=== PATIENT | male | born 1995 | race Caucasian/White ===

== ENCOUNTER 2016-04-04 21:46 | Emergency (ER) | payer BC ==
[2016-04-04 21:58] VITALS: BMI 19.0
[2016-04-04] MEDS ORDERED: ONDANSETRON HCL 4 MG/2 ML VIAL IV ONE (22:19)
[2016-04-04] MEDS ORDERED: NS 1,000 ML IV ONE ×2 (22:19→23:41)
[2016-04-04] MEDS ORDERED: HYDROmorphone 1 MG INJECTION IV ONE (22:19)
--- NOTE | 2016-04-04 22:21 | EDPRACDOC ---
- General Information Chief Complaint: Abdominal Pain Stated Complaint: COUGHING UP BLOOD PALE SHAKING Time Seen by Provider: 04/04/16 22:16 Mode Of Arrival: Car Home Medications: Home Medications Cyclobenzaprine HCl [Flexeril] 10 mg PO TID #20 tablet 11/14/12 Hydrocodone Bit/Acetaminophen [Hydrocodon-Acetaminophen 5-325] 1 tab PO Q4-6H PRN #14 tab 11/14/12 Methylphenidate HCl [Concerta] 18 mg PO DAILY 11/14/12 Ciprofloxacin HCl [Cipro] 500 mg PO BID #20 tab 04/05/16 Ondansetron HCl [Zofran] 4 mg PO TID #30 tablet 04/05/16 Oxycodone HCl/Acetaminophen [Percocet 5-325 mg Tablet] 1 each PO Q4 #20 tablet 04/05/16 Promethazine [Phenergan] 25 mg PO Q8H PRN #30 tab 04/05/16 Allergies/Adverse Reactions: Allergies Allergy/AdvReac Type Severity Reaction Status Date / Time No Known Allergies Allergy Verified 04/04/16 21:58 - History of Present Illness Onset: [employer] HPI: PATIENT STATES HE HAS MAIN MIDABDOMEN SUDDENLY TONIGHT WITH NAUSEA AND VOMITING. "FEELS LIKE GUTS ARE TWISTED UP". NO DIARRHEA. NO HX OF PRIOR EVENT. NO SURGERY. Pain Location: Reports: Periumbilical Pain Context: Reports: Spontaneous Pain Severity: Moderate Pain Quality: Reports: Cramping, Sharp, Stabbing Pain Radiation: Reports: No Radiation Adult Abdominal History: Denies: Abdominal Surgery Modifying Factors: improves with: Nothing Associated Signs & Symptoms: Reports: Nausea, Vomiting Oral Intake: Normal Urinary Output: Normal ED Past Medical History - History Reviewed Yes Nurses notes reviewed and agree except as marked Travel Outside of [place] in the Last 3 Months?: No - Patient Medical History Surgical History: Reports: No Significant History - Social Medical History ETOH: None Substance Abuse: None Lives With: Family Lives In: Home EDM Review of Systems - Review of Systems ROS Negative Except as Marked: Yes All systems reviewed and were negative except as marked Constitutional: No Symptoms Reported. negative: Fever, Chills, Weakness, Fatigue, Loss of Appetite Eyes: No Symptoms Reported. negative: Redness, Blurred Vision, Double Vision, Discharge, Pain, Light Sensitive, Photophobia Ears: No Symptoms Reported. negative: Pain, Hearing Loss, Drainage, Ear Pulling Throat: No Symptoms Reported. negative: Pain, Swelling Nose: No Symptoms Reported. negative: Congestion, Bleeding, Discharge, Injection, Swelling, Deformity, Ecchymosis, Tender, Abrasion, Laceration Mouth: No Symptoms Reported. negative: Pain, Drooling Respiratory: No Symptoms Reported. negative: Cough, Brassy Cough, Barky Cough, Shortness of Breath, Wheezing, Hemoptysis Cardiovascular: No Symptoms Reported. negative: Chest Pain, Palpitations, Syncope, Edema, Orthopnea, PND, Skin Mottling, Cyanosis Gastrointestinal: Nausea, Pain, Vomiting. negative: Constipation, Diarrhea, Formula Intolerance, Melena Genitourinary: No Symptoms Reported. negative: Dysuria, Hematuria, Frequency, Discharge, Bleeding, Testicular Pain, Neurological: No Symptoms Reported. negative: Headache, Dizziness, Seizure, Numbness, Weakness, Speech Difficulty, Gait Difficulty Musculoskeletal: No Symptoms Reported. negative: Neck, Chestwall, Ribs, Back, Shoulder, Arm, Elbow, Forearm, Wrist, Hand, Pelvis, Hip, Femur, Knee, Leg, Ankle , Foot Integumentary: No Symptoms Reported. negative: Itching, Rash, Bruising, Wound Allergic/Immunologic: No Symptoms Reported. negative: Hives, Itching Hematologic: No Symptoms Reported. negative: Lymphadenopathy, Easy Bruising, Easy Bleeding Endocrine: No Symptoms Reported. negative: Weight Gain, Weight Loss Psychiatric: No Symptoms Reported. negative: Anxiety, Depression, Hallucinations, Insomnia, Suicidal - Physical Exam Constitutional: Alert (Awake), Distress (MODERATE) Oriented to: Time, Person, Place Last recorded Vital Signs: Last Vital Signs Temp 97.2 F L 04/04/16 21:54 Pulse 90 04/04/16 23:52 Resp 20 04/04/16 23:52 BP 111/67 04/04/16 23:52 Pulse Ox 96 04/04/16 23:52 Oxygen Pulse Oxygen Saturation 96 O2 Device Room Air Oxygen Flow Rate Fraction of Inspired Oxygen ( FIO2) - HEENT Head: Normal ( normocephalic) Eye Exam: Normal (PERRL, EOMI, Sclera white) Oropharynx: Normal (Pharynx:Moist without exudate,Gums-no swelling) Tympanic Membrane: Normal ENT EAC: Normal TMJ: Normal Nose: No Symptoms Reported (septum midline) Neck: Normal (FROM, trachea at midline) - Respiratory/Cardiovascular Respiratory: Normal - CTA (BBS clear to auscultation without adventitious sounds ) Cardiovascular: Normal (RRR without murmur, gallop or rub) - GI Auscultation: Normal (NABS) Palpation: Normal (Soft,No rebound or guarding, non distended) Tenderness: Diffuse, Moderate, Guarding, Rebound. negative: Rigidity Aguilar's Sign: Negative - Musculoskeletal Back: Normal (Non-Tender) Extremities: Normal (Normal tone, Pulses 2+ No cyanosis or edema, FROM) - Integumentary Skin: Normal, Warm, Dry Lymphatics: Normal (no adenopathy) - Neurologic Memory Impaired: Normal Motor Function: Normal (Normal tone, Pulses 2+ No cyanosis or edema, FROM) Cranial Nerve: Normal (CN II-X11 intact sensation, strength 5/5) Cerebellar: Normal Mood Description: Normal Perception: Normal - Results 04/04/16 22:30 04/04/16 22:30 WBC 19.4 xk/uL (3.8-10.8) H 04/04/16 22:30 RBC 5.90 xM/uL (4.70-6.10) 04/04/16 22:30 Hgb 17.4 g/dL (14.0-18.0) 04/04/16 22:30 Hct 52.2 % (42-52) H 04/04/16 22:30 MCV 89 fL (80-94) 04/04/16 22:30 MCH 29.4 pg (27-32) 04/04/16 22:30 MCHC 33.3 g/dl (33-36) 04/04/16 22:30 RDW 13.4 % (11.5-14.5) 04/04/16 22:30 Plt Count 228 xk/uL (130-400) 04/04/16 22:30 MPV 8.4 fL (7.4-10.4) 04/04/16 22:30 Neut % (Auto) Cancelled 04/04/16 22:30 Lymph % (Auto) Cancelled 04/04/16 22:30 [place] % (Auto) Cancelled 04/04/16 22:30 Eos % (Auto) Cancelled 04/04/16 22:30 Baso % (Auto) Cancelled 04/04/16 22:30 Absolute Neuts (auto) Cancelled 04/04/16 22:30 Absolute Lymphs (auto) Cancelled 04/04/16 22:30 Seg Neuts % (Manual) 81 % (45-76) H 04/04/16 22:30 Band Neutrophils % 0 % (0-5) 04/04/16 22:30 Lymphocytes % (Manual) 13 % (17-44) L 04/04/16 22:30 Monocytes % (Manual) 6 % (0-10) 04/04/16 22:30 Absolute Neutrophils 15.71 xk/uL (1.7-8.2) H 04/04/16 22:30 Absolute Lymphocytes 2.52 xk/uL (0.65-4.75) 04/04/16 22:30 Platelet Estimate Norm (NORMAL) 04/04/16 22:30 RBC Morphology Norm 04/04/16 22:30 Sodium 143 mEq/L (137-146) 04/04/16 22:30 Potassium 3.7 mEq/L (3.5-5.1) 04/04/16 22:30 Chloride 103 mEq/L (98-107) 04/04/16 22:30 Carbon Dioxide 21 mMOL/L (22-33) L 04/04/16 22:30 Anion Gap 23 mEq/L (8-16) H 04/04/16 22:30 BUN 20 MG/DL (9-20) 04/04/16 22:30 Creatinine 1.00 MG/DL (0.66-1.25) 04/04/16 22:30 Estimated GFR (MDRD) > 60 mL/min (>=60) 04/04/16 22:30 Glucose 119 mg/dL (70-99) H 04/04/16 22:30 Calculated Osmolality 279 MOs/Kg (270-290) 04/04/16 22:30 Calcium 10.6 MG/DL (8.4-10.2) H 04/04/16 22:30 Total Bilirubin 0.9 MG/DL (0.2-1.3) 04/04/16 22:30 AST 28 IU/L (17-59) 04/04/16 22:30 ALT 41 IU/L (21-72) 04/04/16 22:30 Alkaline Phosphatase 97 IU/L (38-126) 04/04/16 22:30 Total Protein 9.1 G/DL (6.3-8.2) H 04/04/16 22:30 Albumin 5.6 G/DL (3.5-5.0) H 04/04/16 22:30 Lipase 53 U/L (23-300) 04/04/16 22:30 Urine Color Yellow 04/05/16 01:03 Urine Clarity Clear 04/05/16 01:03 Urine pH 5.0 (5.0-8.0) 04/05/16 01:03 Ur Specific [place] 1.015 (1.003-1.035) 04/05/16 01:03 Urine Protein Neg (NEG/TRACE) 04/05/16 01:03 Urine Glucose (UA) Neg (NEGATIVE) 04/05/16 01:03 Urine Ketones 2+ (NEGATIVE) H 04/05/16 01:03 Urine Occult Blood Neg (NEG/TRACE) 04/05/16 01:03 Urine Nitrite Neg (NEGATIVE) 04/05/16 01:03 Urine Bilirubin Neg (NEGATIVE) 04/05/16 01:03 Urine Urobilinogen <2.0 MG/DL (0-1) 04/05/16 01:03 Ur Leukocyte Esterase Neg (NEGATIVE) 04/05/16 01:03 Urine RBC 0-2 (0-2) 04/05/16 01:03 Urine WBC 0-2 (0-2) 04/05/16 01:03 Ur Epithelial Cells Occ 04/05/16 01:03 Urine Bacteria Few (NEG/FEW) 04/05/16 01:03 Urine Mucus Occ (NEG/OCC) 04/05/16 01:03 Lab Results 04/05/16 04/04/16 04/04/16 01:03 22:30 22:30 WBC 19.4 H RBC 5.90 Hgb 17.4 Hct 52.2 H MCV 89 MCH 29.4 MCHC 33.3 RDW 13.4 Plt Count 228 MPV 8.4 Neut % (Auto) Cancelled Lymph % (Auto) Cancelled [place] % (Auto) Cancelled Eos % (Auto) Cancelled Baso % (Auto) Cancelled Absolute Neuts (auto) Cancelled Absolute Lymphs (auto) Cancelled Seg Neuts % (Manual) 81 H Band Neutrophils % 0 Lymphocytes % (Manual) 13 L Monocytes % (Manual) 6 Absolute Neutrophils 15.71 H Absolute Lymphocytes 2.52 Platelet Estimate Norm RBC Morphology Norm Sodium 143 Potassium 3.7 Chloride 103 Carbon Dioxide 21 L Anion Gap 23 H BUN 20 Creatinine 1.00 Estimated GFR (MDRD) > 60 Glucose 119 H Calculated Osmolality 279 Calcium 10.6 H Total Bilirubin 0.9 AST 28 ALT 41 Alkaline Phosphatase 97 Total Protein 9.1 H Albumin 5.6 H Lipase 53 Urine Color Yellow Urine Clarity Clear Urine pH 5.0 Ur Specific [place] 1.015 Urine Protein Neg Urine Glucose (UA) Neg Urine Ketones 2+ H Urine Occult Blood Neg Urine Nitrite Neg Urine Bilirubin Neg Urine Urobilinogen <2.0 Ur Leukocyte Esterase Neg Urine RBC 0-2 Urine WBC 0-2 Ur Epithelial Cells Occ Urine Bacteria Few Urine Mucus Occ Decision Time to Discharge: 01:41 - Departure Yes I personally saw and evaluated the patient. Disposition: Home Condition: Stable Final Diagnosis: Gastroenteritis Instructions: Gastroenteritis (ED) Education/Counseling Given To: Patient Education/Counseling Given Regarding: Diagnosis, Treatment, Prognosis, Follow Up Referrals: None,No Provider [NonStaff] - One Week Ralph Jaramillo MD [Staff Physician] - One Week Prescriptions: New Ondansetron HCl [Zofran] 4 mg PO TID #30 tablet Oxycodone HCl/Acetaminophen [Percocet 5-325 mg Tablet] 1 each PO Q4 #20 tablet Promethazine [Phenergan] 25 mg PO Q8H PRN #30 tab PRN Reason: Nausea/Vomiting Ciprofloxacin HCl [Cipro] 500 mg PO BID #20 tab No Action Methylphenidate HCl [Concerta] 18 mg PO DAILY Cyclobenzaprine HCl [Flexeril] 10 mg PO TID #20 tablet Hydrocodone Bit/Acetaminophen [Hydrocodon-Acetaminophen 5-325] 1 tab PO Q4- 6H PRN #14 tab PRN Reason: Pain
[2016-04-04 22:39] LABS: MPV 8.4 fL (7.4-10.4)
[2016-04-04 22:50] LABS: BLOOD UREA NITROGEN 20 MG/DL (9-20); CALCIUM 10.6 MG/DL (8.4-10.2); CALCULATED OSMOLALITY 279 MOs/Kg (270-290); CHLORIDE 103 mEq/L (98-107); GLUCOSE 119 mg/dL (70-99); SODIUM LEVEL 143 mEq/L (137-146); TOTAL PROTEIN 9.1 G/DL (6.3-8.2)
[2016-04-04] MEDS ORDERED: Pharmacy Review for Metformin - IV Contrast Given SCH (23:00)
--- NOTE | 2016-04-04 23:33 | DIRPT ---
CLINICAL DATA: Abdominal pain with nausea, vomiting and diarrhea for 4 hours. Elevated white blood cell count. EXAM: CT ABDOMEN AND PELVIS WITH CONTRAST TECHNIQUE: Multidetector CT imaging of the abdomen and pelvis was performed using the standard protocol following bolus administration of intravenous contrast. CONTRAST: 100 mL Isovue 370 IV COMPARISON: Trauma CT 11/14/2012 FINDINGS: Lower chest: The included lung bases are clear. Liver: Homogeneous enhancement without focal lesion. Normal in size. Hepatobiliary: Gallbladder physiologically distended, no calcified stone. No biliary dilatation. Pancreas: No ductal dilatation or inflammation. Spleen: Normal. Adrenal glands: No nodule. Tiny calcifications suspected about both adrenal glands, unchanged. Kidneys: Symmetric renal enhancement. No hydronephrosis. No perinephric stranding or focal abnormality. Stomach/Bowel: Fluid within physiologically distended stomach. Diffuse fluid-filled large and small bowel without definite wall thickening. No bowel dilatation. No perienteric inflammatory change. The appendix is visualized and normal. Vascular/Lymphatic: Multiple central mesenteric lymph nodes, likely reactive. No retroperitoneal adenopathy. Abdominal aorta is normal in caliber. Reproductive: Normal for age. Bladder: Decompressed and not well evaluated. Other: No free air, free fluid, or intra-abdominal fluid collection. Musculoskeletal: There are no acute or suspicious osseous abnormalities. IMPRESSION: Diffuse fluid-filled large and small bowel in a pattern consistent with enteritis. Mesenteric lymph nodes are likely reactive. Electronically Signed By: Sonia Gomes M.D. On: 04/04/2016 23:31
[2016-04-04] MEDS ORDERED: Levofloxacin 750 mg/150 ml D5W 750 MG/150 ML RTU IV ONE (23:39)
[2016-04-05 00:30] LABS: SEG NEUTROPHIL 81 % (45-76)
[2016-04-05] MEDS ORDERED: NS 1,000 ML IV ONE (00:47)
[2016-04-05 01:28] LABS: LEUKOCYTES/URINE NEG (NEGATIVE); NITRITE/URINE NEG (NEGATIVE); RBC/URINE 0-2 (0-2); URINE OCCULT BLOOD NEG (NEG/TRACE); WBC/URINE 0-2 (0-2)
[2016-04-05 02:55] VITALS: BP 115/56; PULSE 88; TEMP 97.8
== END 2016-04-05 02:57 | disposition home or self-care (01) ==
LOC: ED 21:46
DX: K52.9 Noninfective gastroenteritis and colitis, unspecified (principal)
CPT/HCPCS: 36415; 74177; 80053; 81001; 83690; 85007; 85027; 96361; 96365; 96375; 99284; A9698; J1170; J1956; J2405